=== PATIENT | female | born 1960 | race African-American/Black ===

== ENCOUNTER → 2016-08-19 | Outpatient (CLI) | payer BC ==
--- NOTE | 2016-08-19 12:46 | KCIC ---
Bilateral digital diagnostic mammograms with CAD: HISTORY Followup left breast nodule. COMPARISON Comparison is made to previous studies dated back to 06/20/2014. FINDINGS Breast density category B. The skin and nipples show no abnormalities. No abnormal lymph nodes are seen in the axilla. The breast parenchyma shows scattered fibroglandular density. There continues to be a small nodular parenchymal density in the 10 o'clock B position of the left breast without definite interval change. There is however some new nodularity developing in the retroareolar 12 o'clock B position. Recommend further evaluation with ultrasound. There are no other new dominant masses, suspicious calcifications or architectural distortions. IMPRESSION No definite change in the small nodular density at the 10 o'clock position. New 1 centimeter nodular density in the retroareolar 12 o'clock B position. Ultrasound to follow.. This study was interpreted with the benefit of Computerized Aided Detection (CAD). Mammography is not 100% sensitive in detecting breast cancer. Therefore, a self breast exam and a clinical breast exam are very important. A negative mammogram does not negate a clinically suspicious finding and should not result in a delay in biopsying a clinically suspicious abnormality. BI-RADS category 0: Incomplete. Ultrasound to follow. Left breast ultrasound: Comparison is made to previous studies dated 11/12/2015 and 07/09/2015. There continues to be a small hypoechoic lesion in the 10 o'clock position 4 centimeters from the nipple measuring 3.7 millimeters in size which shows no significant change. In the 12 o'clock position 3.5 centimeters from the nipple, there is a hypoechoic circumscribed lesion in parallel orientation which may represent a small fibroadenoma. No other cystic or solid lesions are seen. No abnormal lymph nodes are seen in the axilla. Impression: No change in the small parenchymal nodule at the 10 o'clock position. 1.1 centimeter nodule with the appearance suggesting a fibroadenoma in the 12 o'clock position which would correspond to the area of mammographic concern. Recommend revaluation with mammograms and ultrasound in 3 months. BI-RADS category 3: Probably benign. This patient's information has been entered into a reminder system for the patient to be notified with the results of this examination and a target date for her next mammograms. Electronically signed by: Maritza Erickson MD (Aug 19, 2016 12:44:13)
== END | disposition home or self-care (01) ==
LOC: KCIC MAMMO 09:36
PROVIDERS: ATTEND Nurse Practitioner
DX: R92.8 Other abnormal and inconclusive findings on diagnostic imaging of breast (principal)
CPT/HCPCS: 76641; G0204; 77066

== ENCOUNTER → 2016-11-18 | Outpatient (CLI) | payer BC ==
--- NOTE | 2016-11-18 17:38 | KCIC ---
Diagnostic digital mammogram left breast: Reason for examination: Follow-up nodules. Comparison is made to previous studies dated back to 07/09/2015. The skin and nipple show no abnormalities. No abnormal axillary lymph nodes are seen. The breast parenchyma shows scattered fibroglandular density. (Breast density: Category B.) There continue to be small nodules essentially at the 12:00 B position of the left breast and at approximately the 10:00 B position of the left breast which are unchanged. There are no new dominant masses, suspicious calcifications or architectural distortions. Impression: No definite interval change evident in the nodules at the 12:00 and 10:00 positions. Ultrasound to follow. BI-RADS Category 0: Incomplete. Ultrasound to follow. Left breast ultrasound: Comparison is made to previous studies dated 08/19/2016 and 11/12/2015. Ultrasound examination was performed in the areas of mammographic concern and at the left axilla. In the 12:00 position 3.5 cm from the nipple, there continues to be a 9.6 mm hypoechoic circumscribed lesion. This nodule appears to be slightly smaller. In the 10:00 position 4 cm from the nipple, there continues to be a small 4.9 mm hypoechoic circumscribed lesion consistent with fibrocystic change which also appears to be smaller. There are no new cystic or solid lesion seen. No abnormal appearing lymph nodes are seen in the axilla. Recommend reevaluation with ultrasound at the time of bilateral mammograms. BI-RADS Category 3: Probably Benign. "Our facility is accredited by the [employer] Mammography Program." This patient's information has been entered into a reminder system for the patient to be notified with the results of her examination and a target date for the next mammogram. Electronically signed by: Aysha Erickson MD (11/18/2016 5:35 PM)
== END | disposition home or self-care (01) ==
LOC: KCIC US 09:00
PROVIDERS: ATTEND Nurse Practitioner
DX: N63 Unspecified lump in breast (principal)
CPT/HCPCS: 76641; G0206; 77065